=== PATIENT | female | born 1985 | race Caucasian/White ===

== ENCOUNTER 2016-07-09 08:27 | Emergency (ER) | payer OTHER ==
[~2016-07-09] VITALS: Ht 162.6 cm; Wt 95.3 kg
[~2016-07-09 08:27] MED LIST: IBUPROFEN800 MG PO; PERCOCET 325 MG1 TA2 PO
[2016-07-09 08:43] VITALS: BP 134/87
--- NOTE | 2016-07-09 09:24 | RADIOLOGY REPORT ---
EXAMINATION: XR KNEE, RIGHT CLINICAL INFORMATION: Fracture. Pain and swelling status post fall COMPARISON: None TECHNIQUE: Four views of the right knee. FINDINGS: Soft tissue prominence anterior to the patella tendon likely reflecting contusion. The bone and joints are otherwise normal. No effusion IMPRESSION: Soft tissue prominence anterior to the knee may reflect soft tissue contusion. No fracture.
--- NOTE | 2016-07-09 09:53 | ED UPPER/LOWER EXTREMITY COMPL ---
History of Present Illness General Chief Complaint: Lower Extremity Injury Stated Complaint: R KNEE PAIN Source: patient Exam Limitations: no limitations Vital Signs & Intake/Output Vital Signs & Intake/Output Vital Signs Date Time Temp Pulse Resp B/P Pulse O2 O2 Flow FiO2 Ox Delivery Rate 07/09 0912 Room Air Room Air 07/09 0843 98.6 101 18 134/87 100 Room Air Allergies Coded Allergies: NO KNOWN ALLERGIES (12/31/10) Reconcile Medications Ibuprofen 800 MG TABLET 800 MG PO Q6P PRN PAIN SCALE 4-6 OXYCODONE HCL/ACETAMINOPHEN (Percocet 5-325 MG Tablet) 325 MG/5 MG TAB 1 TAB PO Q4P PRN PAIN SCALE 7-8 Triage Note: 31 Y/O FEMALE C/O PAIN/SWELLING TO R KNEE S/P FALL ON ICE THIS AM. USING ICE PACK WITH SOME RELIEF. STATES NOTHING ELSE GOT INJURED DURING FALL. DECLINES OFFER OF MEDS IN TRIAGE ASKING FOR XRAY/EVAL FIRST. 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 yes : No Patient currently breastfeeds: No HPI: Patient presents for evaluation of right knee pain and swelling after falling on the ice earlier this morning. Patient had an abrupt onset of a constant moderate to severe knee pain that gets worse with ambulation and movement of the knee. The pain is described as an aching sensation. Patient otherwise denies any other associated injuries. Past History Travel History Traveled to [place] past 21 day No Medical History Any Pertinent Medical History? 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 No Review of Systems Review of Systems Constitutional: Reports: no symptoms. EENTM: Reports: no symptoms. Respiratory: Reports: no symptoms. Cardiovascular: Reports: no symptoms. Gastrointestinal/Abdominal: Reports: no symptoms. Genitourinary: Reports: no symptoms. Musculoskeletal: Reports: see HPI. Skin: Reports: no symptoms. Neurological/Psychological: Reports: no symptoms. Hematologic/Endocrine: Reports: no symptoms. Immunological: Reports: no symptoms. All Other Systems: Reviewed and Negative Physical Exam Physical Exam General Appearance: see below Comments: Gen.: Well-nourished, well-developed, no acute respiratory distress. Head: Normocephalic, atraumatic. Eyes: Normal inspection bilaterally Ears: Normal inspection bilaterally Nose: Normal inspection, nasal cannula in place Throat/mouth : Moist mucosa Neck: Supple, full range of motion, no goiter Heart: Regular rate and rhythm Lungs: Quiet respirations Back: Normal range of motion Extremities: Right knee: Mild erythema over the patella doubt associated ecchymoses or soft tissue swelling. Full range of motion with no apparent clinical effusion. The knee stable with no anterior drawer sign. The right lower extremity is neurovascularly intact distally. Neurologic: Cranial nerves grossly intact, speech is clear Skin: warm and dry Psychiatric: Calm, cooperative, no apparent delusions or hallucinations Progress Differential Diagnosis: dislocation, fracture, sprain Plan of Care: Sprain care Diagnostic Imaging: Discussed w/RAD: Radiology Read. Radiology Impression: PATIENT: MARKY COSBY PRESENT AGE: 31 PATIENT ACCOUNT NO: [id number] : 84 LOCATION: [facility] ORDERING PHYSICIAN: FLETCHER JENSEN MD SERVICE DATE: 07/09/16 EXAM TYPE: RAD - XRY-KNEE COMPLETE RIGHT EXAMINATION: XR KNEE, RIGHT CLINICAL INFORMATION: Fracture. Pain and swelling status post fall COMPARISON: None TECHNIQUE: Four views of the right knee. FINDINGS: Soft tissue prominence anterior to the patella tendon likely reflecting contusion. The bone and joints are otherwise normal. No effusion IMPRESSION: Soft tissue prominence anterior to the knee may reflect soft tissue contusion. No fracture. DICTATED BY: ADRIEL RAE MD DATE/TIME DICTATED:07/09/16918 MAORI LIAISON ADVISER:TOMAS DATE/TIME TRANSCRIBED:07/09/16918 CONFIDENTIAL, DO NOT COPY WITHOUT APPROPRIATE AUTHORIZATION. <Electronically signed in Other Vendor System> SIGNED BY: ADRIEL RAE MD 07/09/16923 Comments: Patient declined crutches or knee immobilizer. Departure Departure Disposition: HOME OR SELF CARE Condition: Stable Clinical Impression Primary Impression: Right knee sprain Qualifiers: Encounter type: initial encounter Involved ligament of knee: unspecified ligament Qualified Code: S83.91XA - Sprain of unspecified site of right knee, initial encounter Secondary Impressions: Contusion of knee, right Qualifiers: Encounter type: initial encounter Qualified Code: S80.01XA - Contusion of right knee, initial encounter Fall Qualifiers: Encounter type: initial encounter Qualified Code: W19.XXXA - Unspecified fall, initial encounter Referrals: MERRY MONTAGUE MD (PCP/Family) Additional Instructions: Ice and elevation of your right knee over the next 48 hours. Tripp wrap as needed. Ibuprofen 600 mg every 6 hours as needed for pain. Follow-up with your primary care physician in 7-10 days if not improving. Return if any concerns or sudden worsening. Please note that there might be incidental findings in your evaluation that are unrelated to the current emergency department visit. Please notify your primary care doctor about this emergency department visit in order to obtain and review all of the testing performed so that these incidental findings can be monitored as needed. If you had an x-ray performed, please understand that some fractures may not be seen on the initial set of x-rays. If your symptoms persist you might need a repeat set of x-rays to check for such a fracture. If you had a laceration evaluated, please understand that foreign bodies such as glass or wood may not be visible to the naked eye or on plain x-rays. If the wound becomes red, swollen, increasingly more painful or if there is any drainage from the wound, please have it reevaluated by a physician for the possibility of a retained foreign body. Thank you for choosing the [facility] Emergency [facility] for your care. It was a pleasure to serve you today. Fletcher Jensen M.D. [facility] Departure Forms: Customer Survey General Discharge Information Prescriptions: Current Visit Scripts Ibuprofen 1 TAB PO Q6P PRN PAIN #20 TAB with food
[2016-07-09] MEDS ORDERED: IBUPROFEN600 M1 PO (10:05)
== END 2016-07-09 10:10 ==
LOC: ERH 08:27
DX: S83.91XA Sprain of unspecified site of right knee, initial encounter (principal); S80.01XA Contusion of right knee, initial encounter; W00.0XXA Fall on same level due to ice and snow, initial encounter
CPT/HCPCS: 73562-RT